=== PATIENT | female | born 1995 | race Caucasian/White ===

== ENCOUNTER 2020-01-09 06:30 | Day surgery (SDC) | payer OTHER ==
[2020-01-09] VITALS (8 sets, daily range): BP systolic 100–139; BP diastolic 44–89; PULSE 103–112; TEMP 97.6–98.2
[~2020-01-09] VITALS: Ht 157.5 cm; Wt 115.5 kg
[2020-01-09] MEDS ORDERED: IBU600 MG PO (07:08)
[2020-01-09] MEDS ORDERED: MOTRIN 200200 MG/TAB PO (07:09)
[2020-01-09] MEDS ORDERED: NORCO 325 MG-51 TAB PO (10:57)
[2020-01-09] MEDS ORDERED: MOTRIN 600600 MG/TAB PO (10:57)
--- NOTE | 2020-01-09 11:25 | NUR ---
Patient returns to room 8 per cart from PACU accompanied by Shagufta SOMMER and is awake and alert. Temp 97.1 and room air sats 97%. [place] set dressings x4 dry and intact on abdomen. IV fluids infusing. Patient is taking ice chips without nausea. Siderails up x2 and call light in reach.
--- NOTE | 2020-01-09 11:40 | NUR ---
Patient is sipping on water. Room air sats 93%. Mother in room. Denies need for pain medication.
--- NOTE | 2020-01-09 11:55 | NUR ---
Resting without complaints of pain or nausea.
--- NOTE | 2020-01-09 12:10 | NUR ---
Resting when not disturbed. Room air sats 94%. Continues to deny pain or nausea.
--- NOTE | 2020-01-09 12:25 | NUR ---
Continues to deny pain or nausea. No drainage noted from the incisional areas on abdomen x4.
--- NOTE | 2020-01-09 12:55 | NUR ---
Room air sats 95%. Tolerated applesauce and water.
--- NOTE | 2020-01-09 13:20 | NUR ---
Assisted up to the bathroom and is able to void. Tolerates activity well and returns to room. IV to INT. Patient dresses self.
--- NOTE | 2020-01-09 13:39 | NUR ---
Patient given dismissal instructions and voices understanding of these. Provided scripts for Motrin and [place]. Instructed that she may start the Motrin at 1600 today. Was medicated with [place] 5mg tab at 1320 in preparation for discharge and car ride home.
--- NOTE | 2020-01-09 13:47 | NUR ---
Patient dismissed to home driven by mother and taken to the front door per wheelchair and assisted into car with instructions in hand.
== END 2020-01-09 13:47 | disposition home or self-care (01) ==
LOC: SDCO 06:30
DX: K80.10 Calculus of gallbladder with chronic cholecystitis without obstruction (principal); Z79.899 Other long term (current) drug therapy
CPT/HCPCS: J0690; J1100; J1885; J2405; J2704; J3010; J7120

== ENCOUNTER 2020-02-09 18:05 | Inpatient (IN) | payer OTHER ==
[~2020-02-09] VITALS: Ht 157.5 cm; Wt 108.0 kg
[~2020-02-09 18:05] MED LIST: IBU600 MG PO; MOTRIN 200200 MG/TAB PO; MOTRIN 600600 MG/TAB PO; NORCO 325 MG-51 TAB PO
--- NOTE | 2020-02-09 19:05 | NUR ---
Arrived to room 342 via wheelchair from home-direct admit for Dr. Murcia. Admission assessment complete. IV [id number] right hand x2 attempts. Oriented to room/policy. Plan of care discussed for this shift to include pain/nausea control, IV fluids and antibiotics. Verbalizes understanding/denies questions concerns. Call light in reach. Will monitor.
[2020-02-09 19:07] VITALS: BP 139/86; PULSE 91; TEMP 98.6
--- NOTE | 2020-02-09 19:25 | NUR ---
Dr Dorado at bedside speaking with patient.
[2020-02-09] MEDS ORDERED: PRIL40 PO (20:23)
[2020-02-09] MEDS ORDERED: CARAFATE 1GM1 G PO (20:23)
[2020-02-09] MEDS ORDERED: ZOFRAN 4MG T4 MG/TAB PO (20:25)
--- NOTE | 2020-02-09 22:20 | NUR ---
Called with c/o nausea/pain. Dry heaving but no emesis. Rating pain 6/10 on pain scale-described as constant ache with sharpness to right flank and abdomen. Dilaudid and zofran given per dr order. Call light in reach. Will monitor.
[2020-02-10] VITALS (7 sets, daily range): BP systolic 97–131; BP diastolic 52–68; PULSE 57–80; TEMP 97.6–98.2
--- NOTE | 2020-02-10 05:20 | NUR ---
Rested well later this shift. Received zofran/dilaudid per dr order x1 with good relief. No emesis. Has tolerated H2O but denied wanting anything else. LR continues to infuse to right hand IV without difficulty. Call light in reach. Will monitor.
[2020-02-10 06:33] LABS: BASO % 0.6 % (0.0-2.0); EOS # 0.1 (0.0-0.7); EOS % 1.3 % (0-4.0); GRAN # 4.1 (1.4-6.5); GRAN % 58.3 % (42.2-75.2); HEMATOCRIT 38.5 % (37.0-47.0); HEMOGLOBIN 12.6 g/dl (12.5-16.0); LYMPH # 2.2 (1.2-3.4); LYMPH % 31.2 % (20.0-51.0); MEAN CELL VOLUME 89 fl (80.0-100.0); MEAN CORPUSCULAR HEMOGLOBIN 29 pg (27.0-31.0); MEAN CORPUSCULAR HGB CONC 33 g/dl (33.0-37.0); MEAN PLATELET VOLUME 9.8 fl (7.4-10.4); MONO # 0.6 (0.1-0.6); MONO % 8.3 % (1.7-9.3); PLATELET COUNT 300 K/mm3 (130-400); RED BLOOD COUNT 4.34 M/mm3 (4.10-5.30)
--- NOTE | 2020-02-10 06:35 | NUR ---
Called with c/o pain/nausea. Pain to abdomen/back-rating 6/10 on pain scale-described as constant ache with sharp jabs. Dilaudid/zofran given per dr jordan. Will monitor.
[2020-02-10 06:42] LABS: BILIRUBIN,TOTAL 4.5 mg/dL (0.0-1.0); CREATININE, serum 0.91 (0.52-1.25); POTASSIUM 3.8 mmol/L (3.4-5.0); TOTAL PROTEIN 7.4 gm/dL (6.4-8.2)
--- NOTE | 2020-02-10 08:05 | NUR ---
Patient resting in bed. Pain & nausea controlled at this time. Minimal interest in breakfast, she did eat grapes. rounded today. SHe is aware she may stay until wednesday. Vasquez rowland.
--- NOTE | 2020-02-10 11:25 | NUR ---
Plan: Plan to return home with Mother and father in [facility]. Assessment: SW met with patient about DC options. Patient reports that she resides in [facility] and will stay with her parents for a few days. Patient reports that her mother will help with transportation. Patient denies any DME use. Mother is Anisha Bruce for EMR contact. Patient reports that her PCP is Dr. Italia Cordoba in [facility] and Specialist is Dr. Nick Dorado. Patient denies having any care concerns at this time and reports staff is great. Patient reports that she obtains medications from [facility] in her residing area. Action: SW educated patient on supports available to her. No additional concerns at this time identified. Will continue to follow care.
--- NOTE | 2020-02-10 12:02 | NUR ---
Patient resting in bed. The scent of lunch made her nauseated. Zofran to be given per request, she denies the need for pain medication. I reviewed privacy & Hippa with patient privacy passcode given to her. Update was given to patients mother.
--- NOTE | 2020-02-10 15:32 | NUR ---
Patient feeling better after Zofran. She is sitting up in bed on her computer.
--- NOTE | 2020-02-10 17:02 | NUR ---
[place] dinner ordered. She denies pain.
--- NOTE | 2020-02-10 18:46 | NUR ---
Patient sitting up in bed on her computer. Denies pain or nausea. Bedside report to Kelsy
--- NOTE | 2020-02-10 19:43 | NUR ---
Report received, assumed care for operations analyst. Assessment complete. A&Ox3. VS have been stable. Denies nausea/shortness of breath. Rating pain 2/10 to back-described as constant ache-denies need for intervention. IV to right hand with LR@100mls/hr. SCDs bilat. Tolerating a small amount of PO. Denies needs. Call light in reach. Will monitor.
--- NOTE | 2020-02-10 22:10 | NUR ---
Called with c/o pain and nausea. Rating pain 6/10 on pain scale-described as constant ache across lower abdomen into right side. Has been dry heaving with no emesis. Zofran given per dr order followed by dilaudid. Call light in reach. Will monitor.
--- NOTE | 2020-02-11 | NUR ---
Resting in bed eyes closed. No s/s of pain noted. Call light in reach. Will monitor.
[2020-02-11 03:14] VITALS: BP 98/42; PULSE 53; TEMP 97.6
--- NOTE | 2020-02-11 06:00 | NUR ---
Called with c/o nausea-no emesis as well as pain in lower abdomen into flanks-rated 6/10 on pain scale-described as ache with intermittent throbbing. Zofran given per dr order followed by dilaudid for pain. Has not tolerated a lot of PO-States she just doesnt have an appetite. Voiding without difficulty. Denies questions/concerns. Call light in reach. Will monitor.
[2020-02-11 06:48] LABS: BASO % 0.6 % (0.0-2.0); EOS # 0.1 (0.0-0.7); EOS % 1.7 % (0-4.0); GRAN # 4.3 (1.4-6.5); GRAN % 59.6 % (42.2-75.2); HEMOGLOBIN 11.8 g/dl (12.5-16.0); LYMPH # 2.1 (1.2-3.4); LYMPH % 29.8 % (20.0-51.0); MEAN CELL VOLUME 89 fl (80.0-100.0); MEAN CORPUSCULAR HEMOGLOBIN 29 pg (27.0-31.0); MEAN CORPUSCULAR HGB CONC 33 g/dl (33.0-37.0); MEAN PLATELET VOLUME 9.7 fl (7.4-10.4); MONO # 0.6 (0.1-0.6); MONO % 8.2 % (1.7-9.3); PLATELET COUNT 287 K/mm3 (130-400); RED BLOOD COUNT 4.05 M/mm3 (4.10-5.30); REDCELL DISTRIBUTION WIDTH-CV 13.4 % (11.5-14.5)
[2020-02-11 07:11] LABS: ALBUMIN 3.6 gm/dL (3.5-5.0); BILIRUBIN,TOTAL 4.3 mg/dL (0.0-1.0); CALCIUM 8.9 mg/dL (8.4-10.2); CREATININE, serum 0.87 (0.52-1.25); POTASSIUM 3.9 mmol/L (3.4-5.0); TOTAL PROTEIN 6.8 gm/dL (6.4-8.2)
[2020-02-11 07:14] LABS: HEMATOCRIT 36.1 % (37.0-47.0)
[2020-02-11 08:28] VITALS: BP 109/55; PULSE 53; TEMP 98.2
[2020-02-11 12:20] VITALS: BP 105/68; PULSE 61; TEMP 98.2
[2020-02-11 15:51] VITALS: BP 113/51; PULSE 61; TEMP 97.7
--- NOTE | 2020-02-11 18:00 | NUR ---
Minimal complaints of pain and nausea. Medicated x 1 this shift with prn medications. Afebrile. IV fluids infusing. Appetite poor. Instructed on NPO after midnight.
[2020-02-11 19:40] VITALS: BP 103/48; PULSE 62; TEMP 98
--- NOTE | 2020-02-11 20:00 | NUR ---
Report received, assumed care for night clerk auditor. Currently showering. Denies will assess after shower.
[2020-02-11 23:44] VITALS: BP 103/45; PULSE 57; TEMP 97.8
[2020-02-12] VITALS (10 sets, daily range): BP systolic 101–120; BP diastolic 49–68; PULSE 46–66; TEMP 97.4–98.7
--- NOTE | 2020-02-12 06:00 | NUR ---
Rested well this shift. Received dilaudid/zofran x1 with good pain control. Has been NPO since midnight. Education print outs given per request on ERCP. Denies current needs. Call light in reach. Will monitor.
--- NOTE | 2020-02-12 08:08 | NUR ---
Dr Granger here to see patient.
--- NOTE | 2020-02-12 08:38 | NUR ---
Surgical consent signed.
--- NOTE | 2020-02-12 11:44 | NUR ---
Patient alert and oriented, answers questions appropriately. See assessment. No c/o abdominal pain or pressure. No jaundice noted to skin or sclera. No c/o at this time.
--- NOTE | 2020-02-12 11:45 | NUR ---
To ERCP at this time
[2020-02-12] MEDS ORDERED: NORCO 325 MG-51 TAB PO (16:26)
--- NOTE | 2020-02-12 16:35 | NUR ---
Dr Dorado here to see patient.
--- NOTE | 2020-02-12 17:53 | NUR ---
Discharge instructions reviewed with patient, verbalized understanding. Discharged via wheelchair to auto/home with family at 1740.
== END 2020-02-12 17:40 | disposition home or self-care (01) | DRG 445 ==
LOC: MEDICAL 18:05 → SURG 18:48
PROVIDERS: Internal Medicine Gastroenterology; Surgery; ADMIT Surgery
PROC: 0F758ZZ Dilation of Right Hepatic Duct, Via Natural or Artificial Opening Endoscopic (ICD-10-PCS; 2020-02-12)
PROC: 0F768ZZ Dilation of Left Hepatic Duct, Via Natural or Artificial Opening Endoscopic (ICD-10-PCS; 2020-02-12)
PROC: 0FC98ZZ Extirpation of Matter from Common Bile Duct, Via Natural or Artificial Opening Endoscopic (ICD-10-PCS; 2020-02-12)
PROC: BF10YZZ Fluoroscopy of Bile Ducts using Other Contrast (ICD-10-PCS; 2020-02-12)
PROC: 0FB98ZZ Excision of Common Bile Duct, Via Natural or Artificial Opening Endoscopic (ICD-10-PCS; 2020-02-12)
PROC: 0F798ZZ Dilation of Common Bile Duct, Via Natural or Artificial Opening Endoscopic (ICD-10-PCS; principal; 2020-02-12 12:30)
DX: K80.50 Calculus of bile duct without cholangitis or cholecystitis without obstruction (principal); Z68.41 Body mass index [BMI] 40.0-44.9, adult; K57.10 Diverticulosis of small intestine without perforation or abscess without bleeding; R74.0 Nonspecific elevation of levels of transaminase and lactic acid dehydrogenase [LDH]; E66.01 Morbid (severe) obesity due to excess calories; K21.9 Gastro-esophageal reflux disease without esophagitis; F32.9 Major depressive disorder, single episode, unspecified; F41.9 Anxiety disorder, unspecified; Z79.891 Long term (current) use of opiate analgesic
CPT/HCPCS: A9284; C1769; C9113; J1170; J2405; J2543; J2704; J7030; J7120; Q9967